=== PATIENT | male | born 2000 | race Two or more races ===

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

== ENCOUNTER 2018-01-04 16:00 | Inpatient (IN) | payer MEDICAID ==
[2018-01-04] MEDS ORDERED: NS 1,000 ML IV ONE ×2 (16:24→16:57)
[2018-01-04] MEDS ORDERED: ONDANSETRON 4 MG/2 ML VIAL IVP ONE (16:26)
--- NOTE | 2018-01-04 16:34 | EDPHY ---
H & P Stated Complaint: vomiting. bloody emesis. Blood glucose 400. Took 20 units at 330pm Time Seen by Provider: 01/04/18 16:10 HPI/ROS: CHIEF COMPLAINT: Vomiting HISTORY OF PRESENT ILLNESS: 17-year-old male with IDDM presents with vomiting. He was out drinking excessive alcohol last evening. Onset of vomiting at 0100 , unable to tolerate oral fluids since. Initially there were streaks of blood in the emesis, resolved now. Blood sugar 400 at 0200, took Humalog 20u SQ. Feels dizzy with standing and has generalized weakness. History of DKA; symptoms are similar today. No abdominal pain, fever or diarrhea. REVIEW OF SYSTEMS: complete 10 point ROS reviewed and is negative except for the noted elements in the HPI - Personal History Current Tetanus/Diphtheria Vaccine: Unsure Current Tetanus Diphtheria and Acellular Pertussis (TDAP): Unsure - Medical/Surgical History Hx Asthma: No Hx Chronic Respiratory Disease: No Hx Diabetes: Yes Hx Cardiac Disease: No Hx Renal Disease: No Hx Cirrhosis: No Hx Alcoholism: No Hx HIV/AIDS: No Hx Splenectomy or Spleen Trauma: No Other PMH: IDDM - Social History Smoking Status: Current some day smoker Alcohol Use: Occasionally Drug Use: None - Physical Exam Exam: General Appearance: Alert, pleasant, nontoxic-appearing, odor of ketones Eyes: Pupils equal and round, no conjunctival pallor or injection ENT, Mouth: Mucous membranes dry Neck: Normal inspection Respiratory: Lungs are clear to auscultation Cardiovascular: Regular tachycardia Gastrointestinal: Abdomen is soft and nontender Neurological: A&O, nonfocal exam Skin: Warm and dry, no rash Extremities: Normal inspection Psychiatric: Mood and affect normal Constitutional: Initial Vital Signs Temperature (C) 36.3 C 01/04/18 16:08 Heart Rate 116 H 01/04/18 16:08 Respiratory Rate 26 H 01/04/18 16:08 Blood Pressure 146/82 H 01/04/18 16:08 O2 Sat (%) 99 01/04/18 16:08 O2 Delivery Mode Room Air Allergies/Adverse Reactions: No Known Allergies Allergy (Verified 01/04/18 16:06) Home Medications: Medication Instructions Recorded Insulin Aspart [Novolog Flexpen] 0 unit SQ TIDMEAL 02/03/17 Insulin Glargine [Lantus 100 30 units SC DAILY@18 01/04/18 UNITS/ML (*)] Medical Decision Making ED Course/Re-evaluation: This patient presents with vomiting and elevated blood sugar, most likely related to excessive alcohol use yesterday evening. He is nontoxic-appearing and there is no evidence of infection. Laboratory tests reveal DKA, with a bicarb of 6 and venous pH of 7.11. The DKA protocol was initiated with IV fluids and IV insulin. Zofran IV given for nausea and vomiting. Vital signs remained stable throughout his emergency department stay. The hospitalist service was consulted for admission and he will be admitted to the ICU. Multiple discussions with the patient and his mother. I spent a total of 35 minutes of critical care time in obtaining history, performing a physical exam, bedside monitoring of interventions, collecting and interpreting tests and discussion with consultants but not including time spent performing procedures. Differential Diagnosis: Differential diagnosis includes does not limited to severe dehydration, pneumonia, urinary tract infection, acute coronary syndrome, hypokalemia, HHS. - Data Points Laboratory Results: Laboratory Results 01/04/18 16:20 01/04/18 16:20 01/04/18 01/04/18 01/04/18 16:28 16:20 16:20 WBC 20.68 10^3/uL H 10^3/uL (3.80-9.50) RBC 5.59 10^6/uL 10^6/uL (4.40-6.38) Hgb 18.2 g/dL H g/dL (13.7-17.5) POC Hgb 18.7 gm/dL H gm/dL (13.7-17.5) Hct 52.3 % H % (40.0-51.0) POC Hct 55 % H % (40-51) MCV 93.6 fL fL (81.5-99.8) MCH 32.6 pg pg (27.9-34.1) MCHC 34.8 g/dL g/dL (32.4-36.7) RDW 11.8 % % (11.5-15.2) Plt Count 298 10^3/uL 10^3/uL (150-400) MPV 9.4 fL fL (8.7-11.7) Neut % (Auto) Not Reported Lymph % (Auto) Not Reported [place] % (Auto) Not Reported Eos % (Auto) Not Reported Baso % (Auto) Not Reported Nucleat RBC Rel Count Not Reported Absolute Neuts (auto) Not Reported Absolute Lymphs (auto) Not Reported Absolute Monos (auto) Not Reported Absolute Eos (auto) Not Reported Absolute Basos (auto) Not Reported Absolute Nucleated RBC Not Reported Immature Gran % Not Reported Seg Neutrophils % 81.0 % % Band Neutrophils % 0.0 % % Lymphocytes % 11.0 % % Monocytes % 5.0 % % Eosinophils % 0.0 % % Basophils % 1.0 % % Metamyelocytes % 2.0 % % Myelocytes % 0.0 % % Promyelocytes % 0.0 % % Blast Cells % 0.0 % % Immature Gran # Not Reported Absolute Seg Neuts 16.75 10^/uL H 10^/uL (1.70-6.50) Absolute Band Neuts 0.00 10^3/uL 10^3/uL (0.00-0.70) Absolute Lymphocytes 2.27 10^3/uL 10^3/uL (1.00-3.00) Absolute Monocytes 1.03 10^3/uL H 10^3/uL (0.30-0.80) Absolute Eosinophils 0.00 10^3/uL L 10^3/uL (0.03-0.40) Absolute Basophils 0.21 10^3/uL H 10^3/uL (0.02-0.10) Absolute Metamyelocyte 0.41 10^3/mL H 10^3/mL (0.00-0.00) Absolute Myelocytes 0.00 10^3/mL 10^3/mL (0.00-0.00) Absolute Promyelocytes 0.00 10^3/uL 10^3/uL (0.00-0.00) Absolute Plasma Cells 0.00 10^3/uL 10^3/uL (0.00-0.00) Nucleated RBCs 0 /100 WBC /100 WBC (0-0) Absolute Blast Cells 0.00 10^3/uL 10^3/uL (0.00-0.00) Plasma Cells % 0.0 % % Platelet Estimate ADEQUATE (ADEQ) Polychromasia 1+ H POC Sodium 136 mEq/L mEq/L (135-145) Sodium 139 mEq/L mEq/L (135-145) POC Potassium 4.7 mEq/L mEq/L (3.3-5.0) Potassium 5.3 mEq/L H mEq/L (3.3-5.0) POC Chloride 104 mEq/L mEq/L (97-110) Chloride 99 mEq/L mEq/L (97-110) Carbon Dioxide 6 mEq/l L* mEq/l (22-31) Anion Gap 34 mEq/L H mEq/L (8-16) POC BUN 22 mg/dL mg/dL (7-23) BUN 19 mg/dL mg/dL (7-23) Creatinine 1.1 mg/dL mg/dL (0.7-1.3) POC Creatinine 0.9 mg/dL mg/dL (0.7-1.3) Estimated GFR > 60 Glucose 502 mg/dL H* mg/dL (70-100) POC Glucose 479 mg/dL H mg/dL (70-100) Calcium 10.1 mg/dL mg/dL (8.5-10.4) Total Bilirubin 0.8 mg/dL mg/dL (0.1-1.4) Conjugated Bilirubin 0.3 mg/dL mg/dL (0.0-0.5) Unconjugated Bilirubin 0.5 mg/dL mg/dL (0.0-1.1) AST 23 IU/L IU/L (17-59) ALT 40 IU/L IU/L (21-72) Alkaline Phosphatase 160 IU/L H IU/L (38-126) Total Protein 9.0 g/dL H g/dL (6.3-8.2) Albumin 5.6 g/dL H g/dL (3.5-5.0) Lipase 30 IU/L IU/L (23-300) Medications Given: Acetaminophen (Tylenol) 650 mg PO Q4HRS PRN PRN Reason: Pain, Mild/Fever, Can Take PO Stop: 07/03/18 17:09 Last Admin: 01/04/18 18:15 Dose: 650 mg Ondansetron HCl (Zofran) 4 mg IVP Q4HRS PRN PRN Reason: Nausea/Vomiting, Can't Take PO Stop: 07/03/18 17:09 Last Admin: 01/04/18 18:03 Dose: 4 mg Discontinued Medications Sodium Chloride (Ns) 1,000 mls @ 0 mls/hr IV EDNOW ONE; Wide Open PRN Reason: Protocol Stop: 01/04/18 16:25 Last Admin: 01/04/18 16:26 Dose: 1,000 mls Sodium Chloride (Ns) 1,000 mls @ 1,000 mls/hr IV EDNOW ONE PRN Reason: Protocol Stop: 01/04/18 17:56 Last Admin: 01/04/18 18:03 Dose: 1,000 mls Insulin Human Regular 100 unit / Miscellaneous Medication 1 ea/ Sodium Chloride 101 mls @ 0 mls/hr IV EDNOW ONE; Per Protocol PRN Reason: Protocol Stop: 01/04/18 17:00 Last Admin: 01/04/18 17:27 Dose: 101 mls Ondansetron HCl (Zofran) 4 mg IVP EDNOW ONE Stop: 01/04/18 16:27 Last Admin: 01/04/18 16:33 Dose: 4 mg Point of Care Test Results: Chemistry 01/04/18 16:28 POC Sodium 136 mEq/L mEq/L (135-145) POC Potassium 4.7 mEq/L mEq/L (3.3-5.0) POC Chloride 104 mEq/L mEq/L (97-110) POC BUN 22 mg/dL mg/dL (7-23) POC Creatinine 0.9 mg/dL mg/dL (0.7-1.3) POC Glucose 479 mg/dL H mg/dL (70-100) ISTAT H&H 01/04/18 16:28 POC Hgb 18.7 gm/dL H gm/dL (13.7-17.5) POC Hct 55 % H % (40-51) Departure - Departure Disposition: [facility] Inpatient Acute Clinical Impression: Diabetic ketoacidosis Qualifiers: Diabetes mellitus type: type 1 Diabetes mellitus complication detail: without coma Qualified Code(s): E10.10 - Type 1 diabetes mellitus with ketoacidosis without coma Condition: Serious
[2018-01-04 16:48] LABS: PLATELET COUNT 298 10^3/uL (150-400)
[2018-01-04] MEDS ORDERED: INSULIN REGULAR HUMAN 100 UNIT, COSIGN. REQUIRED 1 EA in NS 100 ML IV ONE (16:59)
[2018-01-04] MEDS ORDERED: ONDANSETRON 4 MG/2 ML VIAL IVP PRN (17:10)
[2018-01-04] MEDS ORDERED: PROMETHAZINE HCL 25 MG/ML INJ IVP PRN (17:10)
[2018-01-04] MEDS ORDERED: ONDANSETRON DISINTEGRATING 4 MG TAB PO PRN (17:10)
--- NOTE | 2018-01-04 17:41 | PDGENHP ---
History and Physical - Chief Complaint Vomiting, Hyperglycemia - History of Present Illness Doyle Caballero is a 17 yo M with a PMhx of T1DM who presents to [facility] for hyperglycemia. Patient reports he was drinking alcohol last night and starting vomiting around 1 AM this morning. He has not been able to tolerate PO intake since. He reports checking his BG and it being elevated to 400's. He took 20 units of Humalog for this. He did have an episode of DKA 1 year ago. He currently denies abdominal pain, nausea, chest pain, shortness of breath, d/c, f /c. History Information - Allergies/Home Medication List Allergies/Adverse Reactions: No Known Allergies Allergy (Verified 01/04/18 16:06) Home Medications: Insulin Aspart [Novolog Flexpen] 20 unit SQ TIDMEAL 02/03/17 [Last Taken Unknown ] Insulin Glargine [Lantus 100 UNITS/ML (*)] 30 units SC DAILY@18 01/04/18 [Last Taken 01/03/18] I have personally reviewed and updated: family history, medical history, social history, surgical history - Past Medical History diabetes type 1 - Surgical History Reports: no pertinent surgical hx - Family History Positive for: non-pertinent - Social History Smoking Status: Current some day smoker Alcohol Use: Occasionally Drug Use: None Review of Systems Review of Systems: ROS: 10pt was reviewed & negative except for what was stated in HPI & below Physical Exam Physical Exam: Temp Pulse Resp BP Pulse Ox 36.3 C 111 H 22 H 131/76 H 99 01/04/18 16:08 01/04/18 17:24 01/04/18 17:24 01/04/18 17:24 01/04/18 17:24 Constitutional: uncomfortable Eyes: PERRL Ears, Nose, Mouth, Throat: dry mucous membranes Cardiovascular: tachycardia Respiratory: no respiratory distress, clear to auscultation Gastrointestinal: soft, non-tender abdomen Genitourinary: no bladder tenderness Skin: warm Musculoskeletal: full muscle strength Neurologic: AAOx3 Psychiatric: interacting appropriately Lab Data & Imaging Review 01/04/18 16:20 01/04/18 16:20 WBC 20.68 10^3/uL (3.80-9.50) H 01/04/18 16:20 RBC 5.59 10^6/uL (4.40-6.38) 01/04/18 16:20 Hgb 18.2 g/dL (13.7-17.5) H 01/04/18 16:20 POC Hgb 18.7 gm/dL (13.7-17.5) H 01/04/18 16:28 Hct 52.3 % (40.0-51.0) H 01/04/18 16:20 POC Hct 55 % (40-51) H 01/04/18 16:28 MCV 93.6 fL (81.5-99.8) 01/04/18 16:20 MCH 32.6 pg (27.9-34.1) 01/04/18 16:20 MCHC 34.8 g/dL (32.4-36.7) 01/04/18 16:20 RDW 11.8 % (11.5-15.2) 01/04/18 16:20 Plt Count 298 10^3/uL (150-400) 01/04/18 16:20 MPV 9.4 fL (8.7-11.7) 01/04/18 16:20 Neut % (Auto) Not Reported 01/04/18 16:20 Lymph % (Auto) Not Reported 01/04/18 16:20 [place] % (Auto) Not Reported 01/04/18 16:20 Eos % (Auto) Not Reported 01/04/18 16:20 Baso % (Auto) Not Reported 01/04/18 16:20 Nucleat RBC Rel Count Not Reported 01/04/18 16:20 Absolute Neuts (auto) Not Reported 01/04/18 16:20 Absolute Lymphs (auto) Not Reported 01/04/18 16:20 Absolute Monos (auto) Not Reported 01/04/18 16:20 Absolute Eos (auto) Not Reported 01/04/18 16:20 Absolute Basos (auto) Not Reported 01/04/18 16:20 Absolute Nucleated RBC Not Reported 01/04/18 16:20 Immature Gran % Not Reported 01/04/18 16:20 Seg Neutrophils % 81.0 % 01/04/18 16:20 Band Neutrophils % 0.0 % 01/04/18 16:20 Lymphocytes % 11.0 % 01/04/18 16:20 Monocytes % 5.0 % 01/04/18 16:20 Eosinophils % 0.0 % 01/04/18 16:20 Basophils % 1.0 % 01/04/18 16:20 Metamyelocytes % 2.0 % 01/04/18 16:20 Myelocytes % 0.0 % 01/04/18 16:20 Promyelocytes % 0.0 % 01/04/18 16:20 Blast Cells % 0.0 % 01/04/18 16:20 Immature Gran # Not Reported 01/04/18 16:20 Absolute Seg Neuts 16.75 10^/uL (1.70-6.50) H 01/04/18 16:20 Absolute Band Neuts 0.00 10^3/uL (0.00-0.70) 01/04/18 16:20 Absolute Lymphocytes 2.27 10^3/uL (1.00-3.00) 01/04/18 16:20 Absolute Monocytes 1.03 10^3/uL (0.30-0.80) H 01/04/18 16:20 Absolute Eosinophils 0.00 10^3/uL (0.03-0.40) L 01/04/18 16:20 Absolute Basophils 0.21 10^3/uL (0.02-0.10) H 01/04/18 16:20 Absolute Metamyelocyte 0.41 10^3/mL (0.00-0.00) H 01/04/18 16:20 Absolute Myelocytes 0.00 10^3/mL (0.00-0.00) 01/04/18 16:20 Absolute Promyelocytes 0.00 10^3/uL (0.00-0.00) 01/04/18 16:20 Absolute Plasma Cells 0.00 10^3/uL (0.00-0.00) 01/04/18 16:20 Nucleated RBCs 0 /100 WBC (0-0) 01/04/18 16:20 Absolute Blast Cells 0.00 10^3/uL (0.00-0.00) 01/04/18 16:20 Plasma Cells % 0.0 % 01/04/18 16:20 Platelet Estimate ADEQUATE (ADEQ) 01/04/18 16:20 Polychromasia 1+ H 01/04/18 16:20 Puncture Site NONE GIVEN 01/04/18 17:11 Patient Temperature 37.0 DEGREES 01/04/18 17:11 VBG pH 7.11 (7.31-7.42) L 01/04/18 17:11 VBG HCO3 7 mEQ/L (22-26) L 01/04/18 17:11 VBG Total CO2 8 mEq/L (21-27) L 01/04/18 17:11 VBG O2 Saturation 68 % (65-75) 01/04/18 17:11 VBG Base Excess -22.5 mEq/L (-2.5-2.5) L 01/04/18 17:11 Mixed VBG pCO2 23 mmHg (40-44) L 01/04/18 17:11 Mixed VBG pO2 44 mmHG (35-40) H 01/04/18 17:11 POC Sodium 136 mEq/L (135-145) 01/04/18 16:28 Sodium 139 mEq/L (135-145) 01/04/18 16:20 POC Potassium 4.7 mEq/L (3.3-5.0) 01/04/18 16:28 Potassium 5.3 mEq/L (3.3-5.0) H 01/04/18 16:20 POC Chloride 104 mEq/L (97-110) 01/04/18 16:28 Chloride 99 mEq/L (97-110) 01/04/18 16:20 Carbon Dioxide 6 mEq/l (22-31) L* 01/04/18 16:20 Anion Gap 34 mEq/L (8-16) H 01/04/18 16:20 POC BUN 22 mg/dL (7-23) 01/04/18 16:28 BUN 19 mg/dL (7-23) 01/04/18 16:20 Creatinine 1.1 mg/dL (0.7-1.3) 01/04/18 16:20 POC Creatinine 0.9 mg/dL (0.7-1.3) 01/04/18 16:28 Estimated GFR > 60 01/04/18 16:20 Glucose 502 mg/dL (70-100) H* 01/04/18 16:20 POC Glucose 479 mg/dL (70-100) H 01/04/18 16:28 Calcium 10.1 mg/dL (8.5-10.4) 01/04/18 16:20 Total Bilirubin 0.8 mg/dL (0.1-1.4) 01/04/18 16:20 Conjugated Bilirubin 0.3 mg/dL (0.0-0.5) 01/04/18 16:20 Unconjugated Bilirubin 0.5 mg/dL (0.0-1.1) 01/04/18 16:20 AST 23 IU/L (17-59) 01/04/18 16:20 ALT 40 IU/L (21-72) 01/04/18 16:20 Alkaline Phosphatase 160 IU/L (38-126) H 01/04/18 16:20 Total Protein 9.0 g/dL (6.3-8.2) H 01/04/18 16:20 Albumin 5.6 g/dL (3.5-5.0) H 01/04/18 16:20 Lipase 30 IU/L (23-300) 01/04/18 16:20 Assessment & Plan Assessment: DKA - Patient drank alcohol last night, not tolerating PO since with n/v - BG 500's on admission, AG 34, VBG pH 7.11, HC03 7 - Will start DKA protocol - Monitor VBG, BMP per protocol - S/p 2L IVF in ED, additional PRN - When AG closed and patient able to tolerate PO will transition back to home DM medications Metabolic Acidosis - VBG pH 7.11, HC03 7 - 2/2 to DKA, management as above Hyperkalemia - K 5.3 on admission, 4.7 s/p IVF - Will continue to monitor BMP T1DM - Takes 30 units Lantus qd and Humalog SSI at home - Tx of DKA as above - Restart home medications when able to tolerate PO FEN: PRN Code: Full Ppx: SCDs Diet: NPO Dispo: Admit to Medicine, ICU for DKA protocol
[2018-01-04] MEDS ORDERED: PROMETHAZINE HCL 25 MG/ML INJ ONE (17:43)
[2018-01-04] MEDS ORDERED: ONDANSETRON 4 MG/2 ML VIAL ONE (17:54)
[2018-01-04] MEDS: ACETAMINOPHEN 325 MG TAB PO PRN (18:15)
[2018-01-05] MEDS ORDERED: D50W 25 GM/50 ML SYR IVP ONE (03:00)
[2018-01-05] MEDS ORDERED: PROTOCOL POTASSIUM 1 DOSE MISC PRN (03:31)
[2018-01-05] MEDS ORDERED: INSULIN REGULAR HUMAN 100 UNIT in NS 100 ML IV SCH ×2 (07:00→07:30)
[2018-01-05] MEDS ORDERED: POTASSIUM Cl (KCl) 100 ML IV SCH ×2 (08:00→13:30)
[2018-01-05] MEDS ORDERED: POTASSIUM CL 20 MEQ TAB PO ONE ×2 (08:15→13:45)
[2018-01-05 08:34] LABS: PLATELET COUNT 190 10^3/uL (150-400)
[2018-01-05] MEDS: INSULIN GLARGINE 100 UNITS/ML UNIT SC SCH (09:38)
[2018-01-05] MEDS: INSULIN LISPRO 100 UNIT/ML SC SCH ×5 (09:40→22:48)
--- NOTE | 2018-01-05 09:53 | ASMTCMCOM ---
CM Note VITOR Note Notes: 17yr old male admitted for Hyperglycemia, Dehydration. He has a Hx of DM-1, DKA. Being tx with insulin. Lives with his mother. CM doesn't anticipate that patient will have discharge needs. Date Signed: 01/05/2018 09:52 AM Electronically Signed By:Jada Hayes LCSW
--- NOTE | 2018-01-05 11:00 | PDMN ---
Medical Necessity Medical necessity: Pt meets IP criteria per MD & MCG M-130; est los >2 mn for eval/tx of diabetic ketoacidosis w/hyperglycemia (BG 500s), ketonemia (B- hydroxybutyrate 11.20), metabolic acidosis (VBG pH 7.11, HCO3 7), tachycardia, hyperkalemia (K 5.3) & N/V w/inability to tolerate PO; admit to ICU for close monitoring & DKA protocol; per H&P & order 01/04/18
--- NOTE | 2018-01-05 13:20 | HOSPPROG ---
Hospitalist Progress Note Assessment/Plan: DKA - 2/2 etoh with associated N/V. gap closed this am, transitioned to SC insulin, still acidemic with CO2 trending down this afternoon, pt minimally engaged -cont IVF's -basal / bolus insulin, achs bgs -bmp this afternoon and in am -dietary consult for education Metabolic Acidosis - 2/2 DKA + GI losses from vomiting. Improved, but CO2 still low and trending down a bit today DM type 1 - resuming basal / bolus insulin today -diabetes education Code: Full Ppx: SCDs Diet: diabetic Dispo: cont inpt, will keep another day due to persistent acidemia, transfer to med/surg Subjective: Pt very sleepy, only minimally engages to answer questions. Sounds like he hasn't taken his insulin recently, says he forgets. Seems like he is not engaged in managing his diabetes. Lives with his mom who is present at bedside. No fevers/chills. No more N/V. No abdominal pain. Objective: Vital Signs Temp Pulse Resp BP Pulse Ox 36.6 C 92 14 123/66 H 100 01/04/18 19:00 01/05/18 13:00 01/05/18 13:00 01/05/18 13:00 01/05/18 13:00 Laboratory Results 01/05/18 08:10 01/05/18 11:58 01/04/18 01/05/18 01/06/18 05:59 05:59 05:59 Intake Total 7858 Output Total 2000 Balance 5858 - Physical Exam Constitutional: no apparent distress Eyes: PERRL Ears, Nose, Mouth, Throat: moist mucous membranes Cardiovascular: regular rate and rhythym Respiratory: no respiratory distress, clear to auscultation Gastrointestinal: normoactive bowel sounds, soft, non-tender abdomen Skin: warm Musculoskeletal: full muscle strength Neurologic: AAOx3 Psychiatric: interacting appropriately ICD10 Worksheet Patient Problems: Problems Problem Status Onset DKA (diabetic ketoacidoses) Acute Acidemia Acute Dehydration Acute
[2018-01-05] MEDS: NS W/ 20 KCl/L 1,000 ML IV SCH ×2 (14:18→21:33)
[2018-01-05] MEDS: ACETAMINOPHEN 325 MG TAB PO PRN (19:46)
[2018-01-06] MEDS: ACETAMINOPHEN 325 MG TAB PO PRN (04:12)
[2018-01-06] MEDS: NS W/ 20 KCl/L 1,000 ML IV SCH (04:13)
[2018-01-06 05:06] LABS: PLATELET COUNT 161 10^3/uL (150-400)
[2018-01-06] MEDS ORDERED: POTASSIUM CL 20 MEQ TAB PO ONE (05:44)
[2018-01-06 08:26] VITALS: BP 117/81
[2018-01-06] MEDS: INSULIN LISPRO 100 UNIT/ML SC SCH (09:34)
[2018-01-06] MEDS: INSULIN GLARGINE 100 UNITS/ML UNIT SC SCH (09:34)
--- NOTE | 2018-01-06 10:53 | GDS ---
DISCHARGE DIAGNOSES: 1. Diabetic ketoacidosis. 2. Alcohol abuse. 3. Metabolic acidosis. 4. Diabetes mellitus type 1. PHYSICAL EXAM: GENERAL: The patient is alert. VITAL SIGNS: Afebrile at 36.4, pulse 87, respirator y rate 16. Blood pressure is 117/81. He is saturating 97% on room air. I have seen and evaluated t he patient on the day of discharge. HOSPITAL COURSE: The patient is a 17-year-old male who presented to the emergency room with complain ts of nausea and vomiting. He was evaluated and diagnosed with, number 1, DKA. This is in the setti ng of alcohol consumption, as well as nausea and vomiting. He was treated with insulin bolus and dri p during this hospitalization. His DKA has completely resolved. He has no further metabolic acidosi s. His blood sugar is well controlled, and he is knowledgeable about how to manage his blood sugar i n the outpatient setting. He is tolerating a regular diet, and he will be discharged home, to follow up with his primary care provider in the outpatient setting. DISCHARGE MEDICATIONS: The patient will reinitiate his previously prescribed home insulin regimen. There are no pending studies. I spent greater than 35 minutes in the care, coordination, and management of the patient's dispositio n. /[id number]/MODL
[2018-01-06] MEDS ORDERED: INSULIN GLARGINE 100 UNITS/ML UNIT SC SCH (18:00)
== END 2018-01-06 11:00 | disposition home or self-care (01) | DRG 420 ==
LOC: F2N 17:55 → F3E 01-05 14:29
PROVIDERS: ADMIT Internal Medicine; ATTEND Internal Medicine
DX: E10.10 Type 1 diabetes mellitus with ketoacidosis without coma (principal); E87.6 Hypokalemia; F10.10 Alcohol abuse, uncomplicated; F17.210 Nicotine dependence, cigarettes, uncomplicated; Z23 Encounter for immunization
CPT/HCPCS: 82435-PO; 82565-PO; 82947-PO; 84132-PO; 84295-PO; 84520-PO; 85014-PO; 96374; G0008; J1815; J2405; J2550

== ENCOUNTER 2018-01-15 20:25 | Emergency (ER) | payer MEDICAID ==
[2018-01-15 20:37] VITALS: BP 114/63
[2018-01-15] MEDS ORDERED: SULFAMETHOX/TMP 800/160 MG 1 TAB PO ONE (20:46)
[2018-01-15] MEDS ORDERED: SULFAMET/TMP DS PREPACK#2 BTL TAKEHOME ONE (20:46)
--- NOTE | 2018-01-15 20:47 | EDPHY ---
H & P Smoking Status: Current some day smoker Time Seen by Provider: 01/15/18 20:43 HPI/ROS: CHIEF COMPLAINT: Right leg abscess HISTORY OF PRESENT ILLNESS: Patient is a 17-year-old male here with complaints right upper leg redness and swelling worsening for the last week. Denies any fever chills. He has no prior history of abscess. Denies any vomiting, fever, chills. Denies other skin lesions. ROS As detailed in HPI (Sarwat Herbert) Physical Exam: General: Alert and oriented. Nontoxic appearing. No acute distress HEENT: Pupils PERRLA. No oral lesions. Cardiopulmonary: Regular rate and rhythm. No lower extremity edema Skin: [place] warm and dry. 3 x 2 cm fluctuant mass to the right upper lateral leg over the trochanteric region. Approximately 1 cm of surrounding erythema Muscle skeletal: Moving all 4 extremities. Equal strength in upper extremities and lower extremities. Ambulatory. (Sarwat Herbert) Constitutional: Initial Vital Signs Temperature (C) 37.0 C 01/15/18 20:36 Heart Rate 99 01/15/18 20:36 Respiratory Rate 18 01/15/18 20:36 Blood Pressure 114/63 01/15/18 20:36 O2 Sat (%) 96 01/15/18 20:36 O2 Delivery Mode Room Air Allergies/Adverse Reactions: No Known Allergies Allergy (Verified 01/17/18 14:15) Home Medications: Medication Instructions Recorded Insulin Aspart [Novolog Flexpen] 0 unit SQ TIDMEAL 02/03/17 Insulin Glargine [Lantus 100 30 units SC DAILY@18 01/04/18 UNITS/ML (*)] Acetaminophen [Tylenol 325mg (*)] 650 mg PO Q4HRS PRN tab 01/06/18 Sulfamethox/Tmp 800/160 mg 1 tab PO BID #14 tab 01/15/18 [Bactrim Ds] Medical Decision Making Procedures: The wound was anesthetized with 1% lidocaine with epinephrine. He tolerated this well. Incision over the area of fluctuance was then made using a 10. Blade. Approximately 5 cc of purulent drainage was expressed. The wound was irrigated and packed with gauze. Bleeding was well controlled. We discussed follow-up in 48 hr for packing removal. He is also started on Bactrim as he did have surrounding cellulitis. (Sarwat Herbert) ED Course/Re-evaluation: This patient was evaluated and treated by the physician corporate administrative assistant. I agree with the plan of care. I am the secondary supervising physician. (Lady Pate) - Data Points Medications Given: Discontinued Medications Trimethoprim/Sulfamethoxazole (Bactrim Ds Prepack#2) 1 btl TAKEHOME EDNOW ONE Stop: 01/15/18 20:47 Last Admin: 01/15/18 21:14 Dose: 1 btl Trimethoprim/Sulfamethoxazole (Bactrim Ds) 1 ea PO EDNOW ONE PRN Reason: Protocol Stop: 01/15/18 20:47 Last Admin: 01/15/18 21:14 Dose: 1 ea Departure - Departure Disposition: Home, Routine, Self-Care Clinical Impression: Abscess Condition: Good Instructions: Sulfamethoxazole/Trimethoprim (By mouth), Abscess (ED) Additional Instructions: Follow-up in 2 days for packing removal. Take Bactrim as prescribed twice a day for 7 days. Referrals: Modesta Borjas DO [Primary Care Provider] - As per Instructions Prescriptions: Sulfamethox/Tmp 800/160 mg [Bactrim Ds] 1 tab PO BID #14 tab
== END 2018-01-15 21:20 | disposition home or self-care (01) ==
PROC: 0H9LXZZ Drainage of Left Lower Leg Skin, External Approach (ICD-10-PCS; principal; 2018-01-15)
DX: L02.415 Cutaneous abscess of right lower limb (principal)

== ENCOUNTER 2018-01-17 14:10 | Emergency (ER) | payer MEDICAID ==
[2018-01-17 14:15] VITALS: BP 103/65
--- NOTE | 2018-01-17 14:43 | EDPHY ---
H & P Time Seen by Provider: 01/17/18 14:35 HPI/ROS: CHIEF COMPLAINT: Abscess follow-up HISTORY OF PRESENT ILLNESS: 17-year-old male seen by myself 2 days ago and had I and D done of right hip abscess. He has been taking Bactrim as prescribed. Denies any fever chills or worsening pain. He has been taking Motrin as needed for pain with good control of pain and swelling. ROS As detailed in HPI Smoking Status: Current some day smoker Physical Exam: General: Alert and oriented. Nontoxic appearing. No acute distress HEENT: Pupils PERRLA. No oral lesions. Cardiopulmonary: Regular rate and rhythm. No lower extremity edema Skin: [place] warm and dry. After removal of dressing and packing removal the wound was explored for any additional loculations. No purulent fluid was expressed. Skin was cleaned and sterile dressing was placed. Muscle skeletal: Moving all 4 extremities. Equal strength in upper extremities and lower extremities. Ambulatory. Constitutional: Initial Vital Signs Temperature (C) 36.6 C 01/17/18 14:13 Heart Rate 98 01/17/18 14:13 Respiratory Rate 16 01/17/18 14:13 Blood Pressure 103/65 01/17/18 14:13 O2 Sat (%) 98 01/17/18 14:13 O2 Delivery Mode Room Air Allergies/Adverse Reactions: No Known Allergies Allergy (Verified 01/17/18 14:15) Home Medications: Medication Instructions Recorded Insulin Aspart [Novolog Flexpen] 0 unit SQ TIDMEAL 02/03/17 Insulin Glargine [Lantus 100 30 units SC DAILY@18 01/04/18 UNITS/ML (*)] Acetaminophen [Tylenol 325mg (*)] 650 mg PO Q4HRS PRN tab 01/06/18 Sulfamethox/Tmp 800/160 mg 1 tab PO BID #14 tab 01/15/18 [Bactrim Ds] Medical Decision Making ED Course/Re-evaluation: 17-year-old male here for follow-up on cellulitis and abscess of the right hip. He is afebrile not tachycardic. The erythema and induration to the right hip has resolved. He will continue taking Bactrim. Wound packing was removed. He has a primary care doctor and is able to follow up on Saturday or Saturday to have the wound rechecked. Differential Diagnosis: Abscess, necrotizing fasciitis, septic bursa Departure - Departure Disposition: Home, Routine, Self-Care Clinical Impression: Abscess, Wound check, abscess Condition: Good Instructions: Abscess (ED) Additional Instructions: Continue taking Bactrim as prescribed. Leave the dressing on that we place today and have her primary care doctor removed Saturday or Saturday and have the wound recheck. Return to the ER for worsening pain, fever, drainage or other worrisome symptoms. Referrals: Modesta Borjas DO [Primary Care Provider] - As per Instructions
== END 2018-01-17 14:50 | disposition home or self-care (01) ==
DX: Z09 Encounter for follow-up examination after completed treatment for conditions other than malignant neoplasm (principal); L02.415 Cutaneous abscess of right lower limb

== ENCOUNTER 2018-05-11 03:23 | Emergency (ER) | payer MEDICAID, OTHER ==
--- NOTE | 2018-05-11 03:45 | EDPHY ---
H & P Stated Complaint: Nausea & Vomiting Time Seen by Provider: 05/11/18 03:45 HPI/ROS: HPI CHIEF COMPLAINT: Nausea and vomiting HISTORY OF PRESENT ILLNESS: 18-year-old male, history of insulin-dependent diabetes, history of DKA, presents emergency room nausea vomiting. Patient reports that Saturday night he had 4 beers woke up Saturday morning vomiting. Patient states he vomited most of Saturday. Multiple times watery yellow. No blood. Continued throughout tonight. No diarrhea, no significant abdominal pain no chest pain or shortness of breath. States his last blood sugar was in the 130s. States he has been compliant with his insulin. Past Medical History: Significant medical history for DKA, insulin-dependent diabetes, alcohol abuse Past Surgical History: No recent surgery Social History: Pre alcohol Saturday. Denies other drugs or tobacco. Family History: Noncontributory ROS REVIEW OF SYSTEMS: 10 Systems were reviewed and negative with the exception of the elements mentioned in the history of present illness. Exam Constitutional nontoxic triage nursing summary reviewed, vital signs reviewed, awake/alert. Vital signs noted be tachycardic at triage, DRY On exam, not [place]. Eyes normal conjunctivae and sclera, EOMI, PERRLA. HENT normal inspection, atraumatic, DRY mucus membranes, no epistaxis, neck supple/ no meningismus, no raccoon eyes. Respiratory clear to auscultation bilaterally, normal breath sounds, no respiratory distress, no wheezing. Cardiovascular tachycardic, regular rhythm, no murmur, no edema, distal pulses normal. Gastrointestinal soft, non-tender, no rebound, no guarding, normal bowel sounds, no distension, no pulsatile mass. Genitourinary no CVA tenderness. Musculoskeletal no midline vertebral tenderness, full range of motion, no calf swelling, no tenderness of extremities, no meningismus, good pulses, neurovascularly intact. Skin pink, warm, & dry, no rash, skin atraumatic. Neurologic awake, alert and oriented x 3, AAOx3, moves all 4 extremities equally, motor intact, sensory intact, CN II-XII intact, normal cerebellar, normal vision, normal speech. Psychiatric normal mood/affect. Heme/Lymph/Immune no lymphadenopathy. Differential Diagnosis: Differential diagnosis includes but is not limited to and in no particular order: Dehydration, electrolyte disturbance, acute nausea vomiting from DKA, alcoholism, pancreatitis Bowel obstruction, appendicitis, gallbladder disease, diverticulitis, colitis, enteritis, perforated viscus, gastritis, GERD, esophagitis, urinary tract infection, pyelonephritis, kidney stones Medical Decision Making: Plan for this patient IV establishment IV fluid bolus 2 L normal saline, 4 mg IV Zofran for nausea, check urinalysis, basic electrolytes, rule out DKA. Alcohol level. Drug screen. Patient noted be tachycardic upon arrival will re-evaluate after IV fluids. Re-evaluation: 0657: Patient re-evaluated this time he reports to me feels much better. His initial heart rate was 142. It is down to 105. He is afebrile here. He p. O. Challenge well without any vomiting. The patient is had 3 L of normal saline here. He was initially very tachycardic 140s, dry on exam. His blood sugar was elevated in the 330s. He had a anion gap and a slightly low bicarb. He had a repeat chemistry after 2 L his gap closed. His bicarb is improved his blood sugar down to 240. Urinalysis pending Plan per p.o. Fluids Patient would like to go home he feels much better. He is well-hydrated Return precautions discussed with him he understands return emergency room if develops worsening vomiting, not doing well, fever, high blood sugar. Source: Patient - Personal History Current Tetanus/Diphtheria Vaccine: Yes Current Tetanus Diphtheria and Acellular Pertussis (TDAP): Yes - Medical/Surgical History Hx Asthma: No Hx Chronic Respiratory Disease: No Hx Diabetes: Yes Hx Cardiac Disease: No Hx Renal Disease: No Hx Cirrhosis: No Hx Alcoholism: No Hx HIV/AIDS: No Hx Splenectomy or Spleen Trauma: No Other PMH: IDDM - Social History Smoking Status: Current some day smoker Constitutional: Initial Vital Signs Temperature (C) 36.7 C 05/11/18 03:35 Heart Rate 142 H 05/11/18 03:35 Respiratory Rate 18 05/11/18 03:35 Blood Pressure 135/91 H 05/11/18 03:35 O2 Sat (%) 94 05/11/18 03:35 O2 Delivery Mode Room Air Allergies/Adverse Reactions: No Known Allergies Allergy (Verified 01/17/18 14:15) Home Medications: Medication Instructions Recorded Insulin Aspart [Novolog Flexpen] 0 unit SQ TIDMEAL 02/03/17 Insulin Glargine [Lantus 100 30 units SC DAILY@18 01/04/18 UNITS/ML] Medical Decision Making - Data Points Laboratory Results: Laboratory Results 05/11/18 03:45 05/11/18 06:11 Medications Given: Discontinued Medications Sodium Chloride (Ns) 1,000 mls @ 0 mls/hr IV EDNOW ONE; Wide Open PRN Reason: Protocol Stop: 05/11/18 03:47 Last Admin: 05/11/18 03:50 Dose: 1,000 mls Sodium Chloride (Ns) 1,000 mls @ 0 mls/hr IV EDNOW ONE; Wide Open PRN Reason: Protocol Stop: 05/11/18 03:47 Last Admin: 05/11/18 03:51 Dose: 1,000 mls Sodium Chloride (Ns) 1,000 mls @ 0 mls/hr IV ONCE ONE PRN Reason: Wide Open Stop: 05/11/18 06:05 Last Admin: 05/11/18 06:11 Dose: 1,000 mls Sodium Chloride (Ns) 1,000 mls @ 0 mls/hr IV ONCE ONE PRN Reason: Wide Open Stop: 05/11/18 06:58 Last Admin: 05/11/18 06:59 Dose: 1,000 mls Ondansetron HCl (Zofran) 4 mg IVP EDNOW ONE Stop: 05/11/18 03:47 Last Admin: 05/11/18 03:51 Dose: 4 mg Departure - Departure Disposition: Home, Routine, Self-Care Clinical Impression: Dehydration Condition: Good Instructions: Dehydration (ED) Additional Instructions: 1. Stay well-hydrated 2. Return emergency room if you have worsening symptoms includes vomiting, not doing well 3. Monitor her blood sugar closely 4. Do not drink alcohol. Referrals: NONE *PRIMARY CARE P,. [Unknown] - As per Instructions
[2018-05-11] MEDS ORDERED: ONDANSETRON 4 MG/2 ML VIAL IVP ONE (03:46)
[2018-05-11] MEDS ORDERED: NS 1,000 ML IV ONE ×4 (03:46→06:57)
[2018-05-11] MEDS ORDERED: ONDANSETRON 4 MG/2 ML VIAL ONE (03:47)
[2018-05-11 04:05] LABS: PLATELET COUNT 348 10^3/uL (150-400)
[2018-05-11 07:47] VITALS: BP 129/71
== END 2018-05-11 07:47 | disposition home or self-care (01) ==
DX: E86.0 Dehydration (principal); R11.2 Nausea with vomiting, unspecified; E10.9 Type 1 diabetes mellitus without complications
CPT/HCPCS: 80305; 96374; G0480; J2405